=== PATIENT | female | born 1940 | race Caucasian/White ===

== ENCOUNTER 2017-07-04 14:08 | Inpatient (IN) | payer MEDICARE, BC ==
[2017-07-04 14:42] LABS: #Basophils 0.1 thou/uL (0.0-0.2); #Lymphocytes 1.5 thou/uL (1.20-3.40); #Neutrophils 8.6 thou/uL (1.40-6.50); %Basophils 0.8 % (0.0-1.0); %Eosinophils 0.3 % (0.0-10.0); %Lymphocytes 13.7 % (21.0-51.0); %Monocytes 8.6 % (0.0-10.0); Hematocrit 39.5 % (36.0-47.0); Red Blood Cell (RBC) Count 4.42 mill/uL (4.20-5.40); White Blood Cell (WBC) Count 11.2 thou/uL (4.8-10.8)
[2017-07-04 14:52] LABS: Lactic Acid - Sepsis 0.9 mmol/L (0.5-2.2)
[2017-07-04 14:56] LABS: ALT (SGPT) 38 U/L (8-55); AST (SGOT) 42 U/L (5-34); Alkaline Phosphatase 86 U/L (40-150); Anion Gap 14 mmol/L (10-20); BUN (Urea Nitrogen) 14 mg/dL (9.8-20.1); Bilirubin, Total 0.6 mg/dL (0.2-1.2); Calc. Creatinine Clearance 0 mL/min (70-130); Calcium 9.3 mg/dL (7.8-10.44); Carbon Dioxide 21 mmol/L (23-31); Chloride 109 mmol/L (98-107); Estimated GFR-MDRD 66; Globulin 2.5 g/dL (2.4-3.5); Lipase 17 U/L (8-78); Protein, Total 6.5 g/dL (6.0-8.3)
[2017-07-04 14:57] LABS: Troponin I Less than 0.010 ng/mL (< 0.028)
--- NOTE | 2017-07-04 15:21 | RAD ---
PORTABLE CHEST 1 VIEW: DATE: 07/04/17. TIME: 2:48 p.m. HISTORY: Dyspnea. The heart size is normal. The lungs are expanded without focal areas of consolidation, pneumothorax, dirk pulmonary edema, or pleural effusions. IMPRESSION: No acute process. POS: [facility]
[2017-07-04] MEDS ORDERED: Ondansetron HCl/PF 4 MG/2 ML Vial IVP PRN ×2 (17:17→18:04)
[2017-07-04] MEDS ORDERED: Ondansetron ODT 4 MG TAB SL PRN (17:17)
[2017-07-04] MEDS ORDERED: Acetaminophen 325 MG TAB PO PRN (17:17)
[2017-07-04] MEDS ORDERED: Ondansetron ODT 4 MG TAB PO PRN (18:04)
[2017-07-04] MEDS ORDERED: Bisacodyl 5 MG TAB PO PRN (18:04)
[2017-07-04 18:12] LABS: Troponin I Less than 0.010 ng/mL (< 0.028)
--- NOTE | 2017-07-04 19:10 | HP ---
PRIMARY CARE PHYSICIAN: Maya Gonzalez M.D. PRIMARY MEDICAL PSYCHOTHERAPIST: Benjamin Dc M.D. CHIEF COMPLAINT: Fatigue. 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 The patient reports that over the last 3 days she h as felt weak, tired, fatigued, and has been getting worse, this morning she barely had energy to move around, so she eventually went to urgent care. There she was noted to have a severely elevated puls e when they did orthostatics on her and so she was sent to [facility] Emergency Room. There, she was found to be in atrial fibrillation with rapid ventricular rate in the 130s. They garcía lused her with Cardizem and put her on a Cardizem drip which eventually brought her rate down into th e 80s and she is feeling a lot better. On the telemetry monitoring now she is actually back in sinus rhythm. Only other symptoms the patient reports are that today, which she has had a little soreness around the bottom of her rib cage when she takes in deep breaths like she has been coughing a lot, b ut she has not been. PAST MEDICAL HISTORY: 1. Postviral cardiomyopathy. 2. Left bundle branch block. 3. Hypertension. 4. Hyperlipidemia. 5. Hypothyroidism. PAST SURGICAL HISTORY: 1. Transvaginal hysterectomy. 2. Tonsillectomy. 3. Cardiac cath years ago. SOCIAL HISTORY: The patient drinks a glass of white wine every evening. No tobacco or illicit drug use. She is and lives with her who is suffering from a postconcussive or posttraumat ic brain injury. ALLERGIES: No known drug allergies. CURRENT MEDICATIONS: 1. Aspirin 81 mg daily. 2. Carvedilol 25 mg twice a day. 3. Lisinopril 20 mg daily. 4. Simvastatin 20 mg daily. 5. Caltrate 600+ D one tablet daily. 6. Centrum Silver 1 tablet daily. 7. Vitamin C 500 mg daily. 8. Vitamin D 2 tablets daily. 9. Fish oil 1200 mg daily. 10. Glucosamine 1500 mg daily. 11. Claritin as needed. FAMILY HISTORY: Unremarkable. REVIEW OF SYSTEMS: Constitutional: No fevers. She did feel a little chilled 4 days ago, but none s du. No significant weight changes. Eyes: No double vision or blurred vision. ENT: She has had little bit of seasonal allergy congestion, but not bad recently, so that she has not even taken her C laritin. No sore throat. Cardiovascular: No chest pain, no palpitations or racing heart that she h as noticed. She did note that her blood pressure was dropping into the 80s in the last day or so and this is one other reasons she went into the urgent care. Pulmonary: No coughing, no wheezing. She has had very minimal dyspnea and the soreness around the entire lower rib cage when she takes in stefani p breaths. Gastrointestinal: No abdominal pain, no nausea or vomiting, no diarrhea or constipation. Genitourinary: No dysuria or hematuria. Musculoskeletal: No muscle aches or joint pains. SKIN: No rashes or other lesions noted. Neurologic: No numbness, tingling or focal weakness. PHYSICAL EXAMINATION: VITAL SIGNS: Blood pressure 150/77, temperature 99, pulse 77, respirations 16, O2 sat 99% on room ai r. GENERAL: This is a well-developed, obese white female in no apparent distress. HEENT: Pupils equal, round, and reactive to light. Extraocular movements intact. Oropharynx is elo ar without lesions, erythema or exudate. NECK: Supple, no lymphadenopathy, no thyroid nodules or enlargement, no JVD. CARDIAC: Regular rate and rhythm. No murmurs, rubs or gallops. She is currently at about 80 beats per minute and has a regular pulse. LUNGS: Clear to auscultation bilaterally, no wheezes, crackles or rhonchi. ABDOMEN: Soft, nontender to palpation, normoactive bowel sounds, no hepatosplenomegaly or other mass es. EXTREMITIES: No clubbing, cyanosis or edema. SKIN: No rashes or other lesions. NEUROLOGIC: Intact strength in all extremities and no facial droop. LABORATORY DATA: CBC with a white blood cell count 11.2 and neutrophils of 76%. The rest is complet raina normal. Complete metabolic panel was notable for a chloride of 109, bicarbonate of 21 and a gluc ose of 136, AST still is also mildly elevated at 42. The remainder is normal. Brain natriuretic pep tide is elevated at 800. Her cardiac marker set is negative x1. Lactic acid was negative. Telemetr y, I did review the telemetry monitoring. The patient is now back in normal sinus rhythm. X-ray, I did review the x-ray done in the emergency room along with the radiologist's report, it shows normal cardiac silhouette, no acute cardiopulmonary process. ASSESSMENT: 1. Atrial fibrillation with rapid ventricular rate, now converted back to sinus rhythm with Cardizem drip. We will continue drip overnight. We will have Cardiology evaluate her in the morning for conv ersion to oral therapy. We will get an echocardiogram and we will check a TSH to make sure that her t hyroid medicine is not overdosed. 2. Hypertension. We will resume patient's home medications. 3. Hypothyroidism. We will resume the patient's levothyroxine. 4. Hyperlipidemia. We will resume patient's home medications. 5. Gastrointestinal prophylaxis. Put the patient on Pepcid in the hospital. 6. Deep venous thrombosis prophylaxis. Put the patient on Lovenox and sequential compression device s and TEDs while in bed. 7. CODE STATUS: The patient is a FULL CODE. Should she be incapacitated, her son would be her [facility] decision maker; his name is Luigi Gallardo.
[2017-07-04] MEDS: Simvastatin 20 MG TAB PO SCH (20:50)
[2017-07-04] MEDS: Famotidine 20 MG TAB PO SCH (20:50)
[2017-07-04] MEDS: Docusate 100 MG CAP PO SCH (20:50)
[2017-07-04] MEDS ORDERED: Carvedilol 25 MG TAB PO SCH (21:00)
[2017-07-04 21:14] LABS: Troponin I Less than 0.010 ng/mL (< 0.028)
[2017-07-04] MEDS: Acetaminophen 325 MG TAB PO PRN (23:32)
[2017-07-05 05:11] LABS: #Lymphocytes 1.8 thou/uL (1.20-3.40); #Monocytes 0.7 thou/uL (0.11-0.59); #Neutrophils 5.7 thou/uL (1.40-6.50); %Basophils 0.1 % (0.0-1.0); %Eosinophils 0.6 % (0.0-10.0); %Lymphocytes 21.5 % (21.0-51.0); %Monocytes 8.7 % (0.0-10.0); Hematocrit 36.1 % (36.0-47.0); Mean Platelet Volume 9.4 fL (7.4-10.4); Red Blood Cell (RBC) Count 3.89 mill/uL (4.20-5.40); White Blood Cell (WBC) Count 8.2 thou/uL (4.8-10.8)
[2017-07-05 05:18] LABS: Anion Gap 10 mmol/L (10-20); BUN (Urea Nitrogen) 9 mg/dL (9.8-20.1); Calc. Creatinine Clearance 85 mL/min (70-130); Calcium 8.6 mg/dL (7.8-10.44); Carbon Dioxide 23 mmol/L (23-31); Chloride 109 mmol/L (98-107); Estimated GFR-MDRD 82
[2017-07-05] MEDS: Carvedilol 25 MG TAB PO SCH ×2 (08:01→16:11)
[2017-07-05] MEDS: Docusate 100 MG CAP PO SCH ×2 (09:47→20:22)
[2017-07-05] MEDS: Lisinopril 20 MG TAB PO SCH (09:48)
[2017-07-05] MEDS: Famotidine 20 MG TAB PO SCH ×2 (09:48→20:20)
[2017-07-05] MEDS: Enoxaparin Sodium 40 MG/0.4 ML SYRINGE SC SCH (09:48)
--- NOTE | 2017-07-05 13:39 | CON ---
DATE OF CONSULTATION: 07/05/2017 HISTORY: The patient is a 77-year-old woman with a history of a cardiomyopathy who presents for eval uation of weakness and dizziness. The patient has previously been diagnosed with a mild cardiomyopat hy. She was placed on Coreg and lisinopril. The patient underwent a cardiac catheterization in 2008 which revealed her to have a mild decreased left ventricular ejection fraction 45-50% with normal co ronary arteries. The patient has done well in her usual state of health when she started having palp itations and dizziness. She went to the emergency room and found to be orthostatic, her heart rate w as elevated. The patient reports having discomfort over her lower ribs when she takes a deep breath. The patient denies any chest pain with exertion. PAST MEDICAL HISTORY: 1. Atrial fibrillation. 2. Hypertension. 3. Hypothyroidism. PAST SURGICAL HISTORY: Hysterectomy, tonsillectomy. SOCIAL HISTORY: Nonsmoker. ALLERGIES: No known drug allergies. MEDICATIONS ON ADMISSION: Aspirin daily, Coreg 25 b.i.d., lisinopril 20 daily, Zocor 20, fish oil ta blet daily. SOCIAL HISTORY: Nonsmoker. REVIEW OF SYSTEMS: Ten-point system otherwise unremarkable. No history of easy bruising or bleeding , bright red blood per rectum. PHYSICAL EXAMINATION: GENERAL: Well-developed woman in no acute distress. VITAL SIGNS: Blood pressure 135/67. NECK: No jugular venous distention, no carotid bruits. LUNGS: Clear to auscultation. HEART: Regular rate and rhythm, normal S1, S2, no murmurs. ABDOMEN: Nondistended. EXTREMITIES: No edema. SKIN: Warm and dry. NEUROLOGIC: Nonfocal. VASCULAR: Radial pulses are 2+. LABORATORY DATA: White blood cell count 8.2, hemoglobin 12.0, hematocrit 36.1, platelets of 140. So dium is 139, potassium 3.2, chloride 109, bicarbonate 23, BUN 9, creatinine 1.7. BNP was 814. EKG revealed atrial flutter with variable conduction. Chest x-ray showed no cardiomegaly. IMPRESSION: 1. New onset atrial fibrillation/flutter. 2. Hypertension. 3. Left bundle branch block. 4. History of cardiomyopathy. This patient presents with new onset of atrial flutter. Will ask EP to evaluate. May need to underg o an ablation. Will continue the patient on Coreg and lisinopril. Will check the patient's echocard iogram. I will follow this patient with you through her hospitalization.
--- NOTE | 2017-07-05 14:38 | PDOC.PN ---
- Subjective Encounter Start Date: 07/05/17 Encounter Start Time: 08:40 Pt seen for followup re: new-onset atrial fibrillation. Denies chest pain, shortness of breath, fevers or chills. No nausea or vomiting. - Objective Resuscitation Status: Resuscitation Status FULL:Full Resuscitation MAR Reviewed: Yes Vital Signs & Weight: Vital Signs (12 hours) Temp Pulse Resp BP BP Pulse Ox 07/05/17 12:10 98.6 F 72 20 162/91 H 97 07/05/17 09:48 135/67 07/05/17 09:00 98 F 71 18 135/67 97 07/05/17 08:00 98 F 71 18 97 07/05/17 04:00 98.3 F 71 18 129/60 95 Weight Admit Weight 170 lb 4.8 oz Weight 169 lb 12.8 oz I&O: 07/04/17 07/05/17 07/06/17 06:59 06:59 06:59 Intake Total 926 Output Total 500 Balance 426 Result Diagrams: 07/06/17 04:47 07/06/17 04:47 EKG Reviewed by me: Yes (Tele: NSR) Phys Exam - Physical Examination Constitutional: NAD HEENT: PERRLA, moist MMs, sclera anicteric, oral pharynx no lesions Neck: no nodes, no JVD, supple, full ROM Respiratory: no wheezing, no rales, no rhonchi, clear to auscultation bilateral Cardiovascular: RRR, no rub Gastrointestinal: soft, non-tender, no distention, positive bowel sounds Musculoskeletal: pulses present Neurological: moves all 4 limbs Lymphatic: no nodes Psychiatric: normal affect, A&O x 3 Skin: no rash, normal turgor, cap refill <2 seconds Dx/Plan (1) New onset atrial fibrillation Code(s): I48.91 - UNSPECIFIED ATRIAL FIBRILLATION Status: Acute (2) Hypokalemia Code(s): E87.6 - HYPOKALEMIA Status: Acute (3) HTN (hypertension) Code(s): I10 - ESSENTIAL (PRIMARY) HYPERTENSION Status: Chronic (4) Dyslipidemia Code(s): E78.5 - HYPERLIPIDEMIA, UNSPECIFIED Status: Chronic (5) Hypothyroidism Code(s): E03.9 - HYPOTHYROIDISM, UNSPECIFIED Status: Chronic - Plan PT/OT, out of bed/ambulate * . Await cardiology input. Monitor vital signs, titrate antihypertensives as needed. Continue statin. Continue synthroid. Review of Systems - Review of Systems Constitutional: negative: Fever, Chills, Sweats, Weakness, Malaise Respiratory: negative: Cough, Dry, Shortness of Breath, Hemoptysis, SOB with Excertion, Pleuritic Pain, Sputum, Wheezing Cardiovascular: negative: Chest Pain, Palpitations, Orthopnea, Paroxysmal Noc. Dyspnea, Edema, Light Headedness Gastrointestinal: negative: Nausea, Vomiting, Abdominal Pain, Diarrhea, Constipation, Melena, Hematochezia Genitourinary: negative: Dysuria, Frequency, Incontinence, Hematuria, Retention - Medications/Allergies Allergies/Adverse Reactions: Allergies Allergy/AdvReac Type Severity Reaction Status Date / Time No Known Drug Allergies Allergy Verified 07/04/17 20:55 Medications: Current Medications Acetaminophen (Tylenol) 650 mg PO Q4H PRN PRN Reason: Headache/Fever or Pain Last Admin: 07/04/17 23:32 Dose: 650 mg Aspirin (Aspirin Chewable) 81 mg PO [facility] Last Admin: 07/04/17 20:50 Dose: 81 mg Bisacodyl (Dulcolax) 10 mg PO DAILYPRN PRN PRN Reason: Constipation Carvedilol (Coreg) 25 mg PO BID-[facility] Last Admin: 07/05/17 08:01 Dose: 25 mg Docusate Sodium (Colace) 100 mg PO BID [facility] Last Admin: 07/05/17 09:47 Dose: 100 mg Enoxaparin Sodium (Lovenox) 40 mg SC 0900 [facility] Last Admin: 07/05/17 09:48 Dose: 40 mg Famotidine (Pepcid) 20 mg PO BID [facility] Last Admin: 07/05/17 09:48 Dose: 20 mg Lisinopril (Zestril) 20 mg PO DAILY [facility] Last Admin: 07/05/17 09:48 Dose: 20 mg Ondansetron HCl (Zofran Odt) 4 mg PO Q6H PRN PRN Reason: Nausea/Vomiting Ondansetron HCl (Zofran) 4 mg IVP Q6H PRN PRN Reason: Nausea/Vomiting Simvastatin (Zocor) 20 mg PO [facility] Last Admin: 07/04/17 20:50 Dose: 20 mg Sodium Chloride (Flush - Normal Saline) 10 ml IVF Q12HR [facility]NGELA Last Admin: 07/05/17 09:49 Dose: 10 ml Sodium Chloride (Flush - Normal Saline) 10 ml IVF PRN PRN PRN Reason: Saline Flush
[2017-07-05] MEDS ORDERED: Loratadine 10 MG TAB PO PRN (14:42)
[2017-07-05] MEDS: Potassium Chloride 20 MEQ TAB PO SCH ×2 (16:11→20:19)
[2017-07-05] MEDS: Simvastatin 20 MG TAB PO SCH (20:20)
[2017-07-05] MEDS: Acetaminophen 325 MG TAB PO PRN (20:20)
[2017-07-05] MEDS ORDERED: Simvastatin 20 MG TAB PO SCH (21:00)
[2017-07-05] MEDS ORDERED: Carvedilol 25 MG TAB PO SCH (21:00)
[2017-07-05] MEDS ORDERED: Diltiazem HCl 125 MG, Admixture Fee 1 EACH in Sodium Chloride 0.9% 100 ML SLOW IVP SCH (23:30)
[2017-07-06 05:37] LABS: #Lymphocytes 1.8 thou/uL (1.20-3.40); #Monocytes 0.9 thou/uL (0.11-0.59); #Neutrophils 5.7 thou/uL (1.40-6.50); %Basophils 0.2 % (0.0-1.0); %Eosinophils 0.5 % (0.0-10.0); %Lymphocytes 21.6 % (21.0-51.0); %Monocytes 10.4 % (0.0-10.0); Hematocrit 39.8 % (36.0-47.0); Mean Platelet Volume 9.1 fL (7.4-10.4); Red Blood Cell (RBC) Count 4.29 mill/uL (4.20-5.40); White Blood Cell (WBC) Count 8.5 thou/uL (4.8-10.8)
[2017-07-06 05:47] LABS: Anion Gap 11 mmol/L (10-20); BUN (Urea Nitrogen) 8 mg/dL (9.8-20.1); Calc. Creatinine Clearance 79 mL/min (70-130); Calcium 9.4 mg/dL (7.8-10.44); Carbon Dioxide 25 mmol/L (23-31); Chloride 110 mmol/L (98-107); Estimated GFR-MDRD 75
[2017-07-06] MEDS: Levothyroxine Sodium 75 MCG TAB PO SCH (05:49)
[2017-07-06] MEDS ORDERED: METHYLSULFONYLMETHANE PO SCH (09:00)
[2017-07-06] MEDS ORDERED: GLUCOSAMINE SULFATE PO SCH (09:00)
[2017-07-06] MEDS ORDERED: Lisinopril 20 MG TAB PO SCH (09:00)
[2017-07-06] MEDS ORDERED: LECITHIN SOY 400 MG PO SCH (09:00)
[2017-07-06] MEDS: Calcium Carbonate + Vit D 1 TAB PO SCH (09:18)
[2017-07-06] MEDS: Fish Oil 1,000 MG CAP PO SCH (09:18)
[2017-07-06] MEDS: Ascorbic Acid 500 mg Chewable Tablet PO SCH (09:18)
[2017-07-06] MEDS: Carvedilol 25 MG TAB PO SCH ×2 (09:18→18:13)
[2017-07-06] MEDS: Multivitamin W/ Minerals 1 TAB PO SCH (09:18)
[2017-07-06] MEDS: Docusate 100 MG CAP PO SCH ×2 (09:18→21:25)
[2017-07-06] MEDS ORDERED: Digoxin 0.25 MG TAB PO SCH (10:00)
[2017-07-06] MEDS: Famotidine 20 MG TAB PO SCH ×2 (10:25→21:25)
[2017-07-06] MEDS: Lisinopril 20 MG TAB PO SCH (10:26)
[2017-07-06] MEDS ORDERED: Apixaban 5 MG TAB PO SCH (10:30)
[2017-07-06] MEDS: Enoxaparin Sodium 40 MG/0.4 ML SYRINGE SC SCH (10:47)
[2017-07-06] MEDS ORDERED: Diprivan 20 ML ONE (11:44)
[2017-07-06] MEDS ORDERED: Propofol 200 MG/20 ML VIAL ONE (12:07)
[2017-07-06] MEDS ORDERED: Lidocaine 1% PF 5 ML VIAL ONE (12:07)
--- NOTE | 2017-07-06 13:24 | PDOC.PN ---
- Subjective Encounter Start Date: 07/06/17 Encounter Start Time: 08:00 Pt seen for followup re; a. fib. Denies chest pain, shortness of breath, fevers or chills. - Objective Resuscitation Status: Resuscitation Status FULL:Full Resuscitation MAR Reviewed: Yes Vital Signs & Weight: Vital Signs (12 hours) Temp Pulse Resp BP Pulse Ox 07/06/17 10:24 75 119/80 07/06/17 09:17 90 141/94 H 07/06/17 08:00 98.1 F 75 16 143/79 H 97 07/06/17 07:15 87 138/87 07/06/17 04:00 97.7 F 90 16 122/87 97 Weight Admit Weight 170 lb 4.8 oz Weight 170 lb I&O: 07/05/17 07/06/17 07/07/17 06:59 06:59 06:59 Intake Total 926 855 Output Total 500 1800 Balance 426 -945 Result Diagrams: 07/06/17 04:47 07/06/17 04:47 EKG Reviewed by me: Yes (Tele: acosta panchal) Phys Exam - Physical Examination Constitutional: NAD HEENT: moist MMs Neck: supple Respiratory: clear to auscultation bilateral Cardiovascular: irregular Gastrointestinal: soft, non-tender Musculoskeletal: pulses present Neurological: moves all 4 limbs Psychiatric: normal affect Skin: no rash Dx/Plan (1) New onset atrial fibrillation Code(s): I48.91 - UNSPECIFIED ATRIAL FIBRILLATION Status: Acute (2) HTN (hypertension) Code(s): I10 - ESSENTIAL (PRIMARY) HYPERTENSION Status: Chronic (3) Dyslipidemia Code(s): E78.5 - HYPERLIPIDEMIA, UNSPECIFIED Status: Chronic (4) Hypothyroidism Code(s): E03.9 - HYPOTHYROIDISM, UNSPECIFIED Status: Chronic (5) Hypokalemia Code(s): E87.6 - HYPOKALEMIA Status: Resolved - Plan PT/OT, out of bed/ambulate * . Pt reverted to a. fib overnight. Await cardiology/EP opinion. Monitor vital signs,titrate antihypertensives as needed. Continue synthroid. Review of Systems - Review of Systems Constitutional: negative: Fever, Chills, Sweats, Weakness, Malaise Respiratory: negative: Cough, Dry, Shortness of Breath, Hemoptysis, SOB with Excertion, Pleuritic Pain, Sputum, Wheezing Cardiovascular: negative: Chest Pain, Palpitations, Orthopnea, Paroxysmal Noc. Dyspnea, Edema, Light Headedness - Medications/Allergies Allergies/Adverse Reactions: Allergies Allergy/AdvReac Type Severity Reaction Status Date / Time No Known Drug Allergies Allergy Verified 07/04/17 20:55 Medications: Current Medications Acetaminophen (Tylenol) 650 mg PO Q4H PRN PRN Reason: Headache/Fever or Pain Last Admin: 07/05/17 20:20 Dose: 650 mg Apixaban (Eliquis) 5 mg PO BID [facility] Ascorbic Acid (Vitamin C) 500 mg PO DAILY [facility] Last Admin: 07/06/17 09:18 Dose: 500 mg Bisacodyl (Dulcolax) 10 mg PO DAILYPRN PRN PRN Reason: Constipation Calcium/Vitamin D (Caltrate 600 + Vit D) 1 tab PO DAILY [facility] Last Admin: 07/06/17 09:18 Dose: 1 tab Carvedilol (Coreg) 25 mg PO BID-[facility] Last Admin: 07/06/17 09:18 Dose: 25 mg Cholecalciferol (Vitamin D3) 2,000 units PO DAILY [facility] Last Admin: 07/06/17 09:19 Dose: 2,000 units Docusate Sodium (Colace) 100 mg PO BID [facility] Last Admin: 07/06/17 09:18 Dose: 100 mg Famotidine (Pepcid) 20 mg PO BID [facility] Last Admin: 07/06/17 10:25 Dose: 20 mg Fish Oil (Fish Oil) 1,000 mg PO DAILY [facility] Last Admin: 07/06/17 09:18 Dose: 1,000 mg Flecainide Acetate (Tambocor) 50 mg PO Q12HR [facility] Diltiazem HCl 125 mg/Miscellaneous Medication 1 each/ Sodium Chloride 125 mls @ 5 mls/hr SLOW IVP INF [facility] PRN Reason: Protocol Last Admin: 07/05/17 23:48 Dose: 125 mls Iron/Minerals/Multivitamins (Theragran M) 1 tab PO DAILY [facility] Last Admin: 07/06/17 09:18 Dose: 1 tab Levothyroxine Sodium (Synthroid) 75 mcg PO 0600 [facility] Last Admin: 07/06/17 05:49 Dose: 75 mcg Lisinopril (Zestril) 20 mg PO DAILY [facility] Last Admin: 07/06/17 10:26 Dose: 20 mg Loratadine (Claritin) 10 mg PO DAILY PRN PRN Reason: Allergies Ondansetron HCl (Zofran Odt) 4 mg PO Q6H PRN PRN Reason: Nausea/Vomiting Ondansetron HCl (Zofran) 4 mg IVP Q6H PRN PRN Reason: Nausea/Vomiting Pantoprazole Sodium (Protonix) 40 mg PO DAILY PRN PRN Reason: INDIGESTION Simvastatin (Zocor) 20 mg PO HS [facility] Last Admin: 07/05/17 20:20 Dose: 20 mg Sodium Chloride (Flush - Normal Saline) 10 ml IVF Q12HR [facility] Last Admin: 07/05/17 20:23 Dose: 10 ml Sodium Chloride (Flush - Normal Saline) 10 ml IVF PRN PRN PRN Reason: Saline Flush
--- NOTE | 2017-07-06 13:25 | ECHO ---
TRANSESOPHAGEAL ECHOCARDIOGRAM: DATE OF PROCEDURE: 07/06/17 INDICATION: 77-year-old woman with paroxysmal atrial fibrillation. DESCRIPTION OF PROCEDURE: The patient was taken to the PACU. The patient was sedated by anesthesiology. A transesophageal probe was placed in the distal esophagus and stomach. Echocardiographic images were obtained. The transesophageal probe was removed. FINDINGS: 1. Normal left ventricular systolic function. 2. Normal mitral and aortic valve. 3. Mild mitral regurgitation. 4. Mild tricuspid regurgitation. 5. Trivial aortic regurgitation. 6. No thrombus noted in the left atrium or left atrial appendage. 7. Atherosclerotic debris in the descending aorta. IMPRESSION: No formed thrombus in the left atrium or left atrial appendage.
--- NOTE | 2017-07-06 13:27 | OP ---
ELECTRICAL CARDIOVERSION: Date: 07/06/17 INDICATION: This is a 77-year-old woman with paroxysmal atrial fibrillation. DESCRIPTION OF PROCEDURE: The patient taken to the PACU. The patient was sedated by anesthesiology. The patient was shocked wi th 200 joules of synchronized electricity. The patient converted to normal sinus rhythm. IMPRESSION: Successful electrocardioversion
[2017-07-06] MEDS ORDERED: Dronedarone HCl 400 MG TAB PO SCH (17:00)
[2017-07-06] MEDS: Simvastatin 20 MG TAB PO SCH (21:25)
[2017-07-06] MEDS: Acetaminophen 325 MG TAB PO PRN (21:25)
[2017-07-06] MEDS: Apixaban 5 MG TAB PO SCH (21:25)
[2017-07-07 04:54] LABS: #Eosinphils 0.1 thou/uL (0.0-0.7); #Lymphocytes 1.8 thou/uL (1.20-3.40); #Neutrophils 6.2 thou/uL (1.40-6.50); %Basophils 0.3 % (0.0-1.0); %Eosinophils 0.9 % (0.0-10.0); %Monocytes 11.2 % (0.0-10.0); Hematocrit 39.7 % (36.0-47.0); Red Blood Cell (RBC) Count 4.27 mill/uL (4.20-5.40); White Blood Cell (WBC) Count 9.1 thou/uL (4.8-10.8)
[2017-07-07 05:06] LABS: Anion Gap 13 mmol/L (10-20); BUN (Urea Nitrogen) 15 mg/dL (9.8-20.1); Calc. Creatinine Clearance 77 mL/min (70-130); Calcium 9.2 mg/dL (7.8-10.44); Carbon Dioxide 24 mmol/L (23-31); Chloride 107 mmol/L (98-107); Estimated GFR-MDRD 72
[2017-07-07] MEDS: Levothyroxine Sodium 75 MCG TAB PO SCH (06:22)
[2017-07-07] MEDS ORDERED: Digoxin 0.25 MG TAB PO SCH (09:00)
--- NOTE | 2017-07-07 10:04 | EKG ---
Test Reason : POST CARDIOVERSION Blood Pressure : / mmHG Vent. Rate : 073 BPM Atrial Rate : 073 BPM P-R Int : 176 ms QRS Dur : 138 ms QT Int : 436 ms P-R-T Axes : 054 003 090 degrees QTc Int : 480 ms Sinus rhythm with Premature supraventricular complexes Non-specific intra-ventricular conduction block T wave abnormality, consider lateral ischemia Abnormal ECG No previous ECGs available Confirmed by BERNARDA MILLAN, DR. Hendricks ([id number]) on 07/07/2017 10:04:01 AM Referred By: CORNELIO Confirmed By:DR. Eladio MENCHACA MD
[2017-07-07] MEDS ORDERED: Cephalexin 250 MG CAP PO SCH (10:30)
[2017-07-07] MEDS: Ascorbic Acid 500 mg Chewable Tablet PO SCH (11:21)
[2017-07-07] MEDS: Apixaban 5 MG TAB PO SCH ×2 (11:21→20:52)
[2017-07-07] MEDS: Lisinopril 20 MG TAB PO SCH (11:22)
[2017-07-07] MEDS: Carvedilol 25 MG TAB PO SCH ×2 (11:26→16:59)
[2017-07-07] MEDS: Docusate 100 MG CAP PO SCH ×2 (11:26→20:53)
[2017-07-07] MEDS: Fish Oil 1,000 MG CAP PO SCH (11:26)
[2017-07-07] MEDS: Multivitamin W/ Minerals 1 TAB PO SCH (11:27)
[2017-07-07] MEDS: Calcium Carbonate + Vit D 1 TAB PO SCH (11:27)
[2017-07-07] MEDS: Famotidine 20 MG TAB PO SCH ×2 (11:27→20:54)
--- NOTE | 2017-07-07 11:27 | PRG ---
DATE OF SERVICE: 07/07/2017 SUBJECTIVE: Ms. Gallardo is doing well today. She wants to go home. OBJECTIVE: VITAL SIGNS: Blood pressure 135/72, pulse 72 and regular. LUNGS: Clear. CARDIAC: Normal S1, normal S2. Right antecubital IV site looks like there is some redness at the IV site and it is not tender. ASSESSMENT: Atrial fibrillation, maintaining sinus rhythm. Was started on flecainide per Dr. Dalia levi's note. PLAN: 1. The patient is to be released home. 2. She will be on Keflex in view of the redness at the IV site in case there is any phlebitis. She wants to go home at this time and she will be released home.
--- NOTE | 2017-07-07 11:52 | DIS ---
DATE OF ADMISSION: 07/04/2017 DATE OF DISCHARGE: 07/07/2017 PRIMARY CARE PHYSICIAN: Dr. Maya Gonzalez. DISCHARGE DIAGNOSIS: New onset atrial fibrillation/flutter. CONDITION OF PATIENT AT THE TIME OF DISCHARGE: Stable. I assessed Ms. Gallardo on the day of discha rge. She denies any chest pain or shortness of breath. Vital signs are stable. S1 and S2 are heard , regular. Lungs are clear to auscultation bilaterally. PROCEDURES DURING THIS HOSPITALIZATION: 1. Transesophageal echocardiogram on 07/06/2017, which did not show any formed thrombus in the left atrium or left atrial appendage. 2. Cardioversion on 07/06/2017. 3. A 2D echocardiogram on 07/04/2017, which showed ejection fraction estimated at 55%-60%, mildly di lated left atrium and normal left ventricular size. She had mild mitral regurgitation and mild tricu spid regurgitation. DISCHARGE MEDICATIONS: Apixaban 5 mg 2 times a day, flecainide 50 mg 2 times a day, cephalexin 500 m g twice daily for 7 days, vitamin C 500 mg daily, aspirin 81 mg daily, Calcitrate/vitamin D 1 tablet daily, Coreg 25 mg 2 times a daily, vitamin D 2000 units daily, fish oil 1 capsule daily, glucosamine 1500 mg daily, lecithin 1 capsule daily, levothyroxine 75 mcg daily, lisinopril 20 mg daily, loratad ine 10 mg daily as needed, multivitamins 1 tablet daily, Prilosec 2.5 mg daily as needed, simvastatin 20 mg at bedtime. HOSPITAL COURSE: Ms. Gallardo is a pleasant 77-year-old lady who was admitted to [facility] on 07/04/2017 for new onset atrial fibrillation/flutter. She was seen by Cardiology Dr. Dao Gunn. On 07/06/2017, she underwent MARANDA followed by electrical cardioversion. She arias s been started on flecainide and apixaban during this hospitalization. She had intravenous access at the right antecubital fossa. On the day of discharge, it was noted to be mildly inflamed as well as with mildly elevated temperature. She has been started on cephalexin f or suspected skin and soft tissue infection. She is advised to follow up with her primary care provider as well as with Dr. Dc. Many thanks for allowing me to participate in your patient's care. Please feel free to contact me wi th any questions or concerns. On the day of discharge, she has a white count of 9100, hemoglobin 12.6, platelet count 178,000, norm al basic metabolic profile. Her TSH during this hospitalization was normal at 1.4664. DISCHARGE DESTINATION: Home. TOTAL AMOUNT OF TIME SPENT COORDINATING THIS DISCHARGE: 33 minutes.
--- NOTE | 2017-07-07 14:07 | PDOC.PN ---
- Subjective Encounter Start Date: 07/07/17 Encounter Start Time: 09:00 Pt seen for followup re: atrial fibrillation. Denies chest pain, shortness of breath, fevers or chills. - Objective Resuscitation Status: Resuscitation Status FULL:Full Resuscitation MAR Reviewed: Yes Vital Signs & Weight: Vital Signs (12 hours) Temp Pulse Resp BP BP Pulse Ox 07/07/17 12:05 98.6 F 71 20 146/73 H 99 07/07/17 11:22 164/88 H 07/07/17 04:20 97 07/07/17 04:00 98.1 F 72 18 135/72 97 Weight Admit Weight 170 lb 4.8 oz Weight 171 lb 9.6 oz I&O: 07/06/17 07/07/17 07/08/17 06:59 06:59 06:59 Intake Total 855 240 Output Total 1800 100 Balance -945 140 Result Diagrams: 07/07/17 04:17 07/07/17 04:16 EKG Reviewed by me: Yes (Tele: NSR) Phys Exam - Physical Examination Constitutional: NAD HEENT: moist MMs, oral pharynx no lesions Neck: no JVD Respiratory: clear to auscultation bilateral Cardiovascular: RRR Gastrointestinal: soft, non-tender Neurological: moves all 4 limbs Psychiatric: normal affect Skin: no rash Dx/Plan (1) New onset atrial fibrillation Code(s): I48.91 - UNSPECIFIED ATRIAL FIBRILLATION Status: Acute (2) HTN (hypertension) Code(s): I10 - ESSENTIAL (PRIMARY) HYPERTENSION Status: Chronic (3) Dyslipidemia Code(s): E78.5 - HYPERLIPIDEMIA, UNSPECIFIED Status: Chronic (4) Hypothyroidism Code(s): E03.9 - HYPOTHYROIDISM, UNSPECIFIED Status: Chronic (5) Hypokalemia Code(s): E87.6 - HYPOKALEMIA Status: Resolved - Plan PT/OT, out of bed/ambulate * . Plan was to discharge pt home on flecainide and apixaban. However, she reverted to a. fib in the afternoon. Discharge on hold, continue to monitor. Continue to ambulate patient. Continue flecainide and apixaban. Review of Systems - Review of Systems Constitutional: negative: Fever, Chills, Sweats, Weakness, Malaise Cardiovascular: negative: Chest Pain, Palpitations, Orthopnea, Paroxysmal Noc. Dyspnea, Edema, Light Headedness Gastrointestinal: negative: Nausea, Vomiting, Abdominal Pain, Diarrhea, Constipation, Melena, Hematochezia - Medications/Allergies Allergies/Adverse Reactions: Allergies Allergy/AdvReac Type Severity Reaction Status Date / Time No Known Drug Allergies Allergy Verified 07/04/17 20:55 Medications: Current Medications Acetaminophen (Tylenol) 650 mg PO Q4H PRN PRN Reason: Headache/Fever or Pain Last Admin: 07/06/17 21:25 Dose: 650 mg Apixaban (Eliquis) 5 mg PO BID [facility] Last Admin: 07/07/17 11:21 Dose: 5 mg Ascorbic Acid (Vitamin C) 500 mg PO DAILY [facility] Last Admin: 07/07/17 11:21 Dose: 500 mg Bisacodyl (Dulcolax) 10 mg PO DAILYPRN PRN PRN Reason: Constipation Calcium/Vitamin D (Caltrate 600 + Vit D) 1 tab PO DAILY [facility] Last Admin: 07/07/17 11:27 Dose: 1 tab Carvedilol (Coreg) 25 mg PO BID[facility] Last Admin: 07/07/17 11:26 Dose: 25 mg Cephalexin (Keflex) 500 mg PO Q12HR [facility] Cholecalciferol (Vitamin D3) 2,000 units PO DAILY [facility] Last Admin: 07/07/17 11:26 Dose: 2,000 units Docusate Sodium (Colace) 100 mg PO BID [facility] Last Admin: 07/07/17 11:26 Dose: 100 mg Famotidine (Pepcid) 20 mg PO BID [facility] Last Admin: 07/07/17 11:27 Dose: 20 mg Fish Oil (Fish Oil) 1,000 mg PO DAILY [facility] Last Admin: 07/07/17 11:26 Dose: 1,000 mg Flecainide Acetate (Tambocor) 50 mg PO Q12HR [facility] Last Admin: 07/07/17 11:21 Dose: 50 mg Iron/Minerals/Multivitamins (Theragran M) 1 tab PO DAILY [facility] Last Admin: 07/07/17 11:27 Dose: 1 tab Levothyroxine Sodium (Synthroid) 75 mcg PO 0600 [facility] Last Admin: 07/07/17 06:22 Dose: 75 mcg Lisinopril (Zestril) 20 mg PO DAILY [facility] Last Admin: 07/07/17 11:22 Dose: 20 mg Loratadine (Claritin) 10 mg PO DAILY PRN PRN Reason: Allergies Ondansetron HCl (Zofran Odt) 4 mg PO Q6H PRN PRN Reason: Nausea/Vomiting Ondansetron HCl (Zofran) 4 mg IVP Q6H PRN PRN Reason: Nausea/Vomiting Pantoprazole Sodium (Protonix) 40 mg PO DAILY PRN PRN Reason: INDIGESTION Simvastatin (Zocor) 20 mg PO HS [facility] Last Admin: 07/06/17 21:25 Dose: 20 mg Sodium Chloride (Flush - Normal Saline) 10 ml IVF Q12HR [facility] Last Admin: 07/07/17 11:27 Dose: Not Given Sodium Chloride (Flush - Normal Saline) 10 ml IVF PRN PRN PRN Reason: Saline Flush
[2017-07-07] MEDS: Simvastatin 20 MG TAB PO SCH (20:53)
[2017-07-07] MEDS: Cephalexin 250 MG CAP PO SCH (20:53)
[2017-07-08 05:16] LABS: #Eosinphils 0.1 thou/uL (0.0-0.7); #Lymphocytes 1.8 thou/uL (1.20-3.40); #Neutrophils 6.1 thou/uL (1.40-6.50); %Basophils 0.3 % (0.0-1.0); %Lymphocytes 19.7 % (21.0-51.0); %Monocytes 11.5 % (0.0-10.0); Anion Gap 10 mmol/L (10-20); BUN (Urea Nitrogen) 14 mg/dL (9.8-20.1); Calc. Creatinine Clearance 85 mL/min (70-130); Carbon Dioxide 23 mmol/L (23-31); Chloride 107 mmol/L (98-107); Estimated GFR-MDRD 84; Hematocrit 39.4 % (36.0-47.0); Red Blood Cell (RBC) Count 4.27 mill/uL (4.20-5.40)
[2017-07-08] MEDS: Levothyroxine Sodium 75 MCG TAB PO SCH (05:36)
[2017-07-08] MEDS: Docusate 100 MG CAP PO SCH (08:59)
[2017-07-08] MEDS: Ascorbic Acid 500 mg Chewable Tablet PO SCH (08:59)
[2017-07-08] MEDS: Cephalexin 250 MG CAP PO SCH (08:59)
[2017-07-08] MEDS: Carvedilol 25 MG TAB PO SCH (08:59)
[2017-07-08] MEDS: Calcium Carbonate + Vit D 1 TAB PO SCH (08:59)
[2017-07-08] MEDS: Apixaban 5 MG TAB PO SCH (09:01)
[2017-07-08] MEDS: Fish Oil 1,000 MG CAP PO SCH (09:01)
[2017-07-08] MEDS: Lisinopril 20 MG TAB PO SCH (09:02)
[2017-07-08] MEDS: Famotidine 20 MG TAB PO SCH (09:02)
[2017-07-08] MEDS: Multivitamin W/ Minerals 1 TAB PO SCH (09:02)
[2017-07-08 12:22] VITALS: BP 119/66; TEMP 97.8
--- NOTE | 2017-07-08 16:10 | ADD-DIS ---
ADDENDUM DATE OF ADMISISON: 07/04/2017 DATE OF DISCHARGE: 07/08/2017 PRIMARY CARE PHYSICIAN: Dr. Maya Gonzalez. DISCHARGE DIAGNOSIS: New onset atrial fibrillation/flutter. The patient was not discharged that day, because of recurrence of atrial fibrillation. She has been started on Cardizem-CD and is being discharged home on 07/08/2017. CONDITION OF PATIENT AT THE TIME OF DISCHARGE: Stable. I assess Ms. Gallardo on the day of discharg e. She denies any fevers or chills. No nausea or vomiting. PHYSICAL EXAMINATION: VITAL SIGNS: Stable. HEART: patient monitor shows normal sinus rhythm. S1 and S2 are heard, regular. LUNGS: Clear to auscultation bilaterally. DISCHARGE MEDICATIONS: In addition to the discharge medications dictated on the discharge summary fr om 07/07/2017, she is being discharged home on Cardizem-CD 120 mg daily. PROCEDURES DURING THIS HOSPITALIZATION: As dictated on the discharge summary on 07/07/2017. HOSPITAL COURSE: Please refer to the previous discharge summary dictated on 07/07/2017. She was not discharged on 07/07/2017, because of recurrence of atrial fibrillation. However, she converted to n ormal sinus rhythm shortly after being started on Cardizem drip. She was switched to oral Cardizem a nd is being discharged home. Many thanks for allowing me to participate in your patient's care. Please feel free to contact me wi th any questions or concerns. On the day of discharge, she has a white count of 9000, hemoglobin 12.7, platelet count 198,000 and a normal basic metabolic profile. DISCHARGE DESTINATION: Home. TOTAL AMOUNT OF TIME SPENT COORDINATING THIS DISCHARGE: 23 minutes.
--- NOTE | 2017-07-10 07:34 | EKG ---
Test Reason : Blood Pressure : / mmHG Vent. Rate : 075 BPM Atrial Rate : 075 BPM P-R Int : 182 ms QRS Dur : 150 ms QT Int : 414 ms P-R-T Axes : 044 -11 135 degrees QTc Int : 462 ms Normal sinus rhythm Left bundle branch block Abnormal ECG When compared with ECG of 06-JUL-2017 12:50, Premature supraventricular complexes are no longer Present Confirmed by BERNARDA MILLAN, DR. Hendricks ([id number]) on 07/10/2017 7:34:13 AM Referred By: LÁZARO Confirmed By:DR. Eladio MENCHACA MD
== END 2017-07-08 12:56 | disposition home or self-care (01) | DRG 310 ==
LOC: SCSER 14:08 → 2NO 16:32
PROVIDERS: ADMIT Emergency Medicine; ATTEND Emergency Medicine
PROC: 5A2204Z Restoration of Cardiac Rhythm, Single (ICD-10-PCS; principal; 2017-07-06)
DX: I48.0 Paroxysmal atrial fibrillation (principal); I44.7 Left bundle-branch block, unspecified; I10 Essential (primary) hypertension; Z90.710 Acquired absence of both cervix and uterus; E03.9 Hypothyroidism, unspecified; E78.5 Hyperlipidemia, unspecified; I48.92 Unspecified atrial flutter; E87.6 Hypokalemia
CPT/HCPCS: 36415; 71010; 80048; 80053; 82553; 83605; 83690; 83880; 84443; 84484; 85025; 92960; 93005; 93010; 93306; 93312; 96365; 96376; A4216; J1650; J2001; J2704; J7050

== ENCOUNTER 2018-04-11 14:48 | Outpatient (CLI) | payer MEDICARE, BC | END 2018-04-11 14:49 | disposition home or self-care (01) | LOC: BICMAMMO 14:48 | PROVIDERS: ATTEND Family Medicine | DX: N64.4 Mastodynia (principal); R21 Rash and other nonspecific skin eruption; R92.1 Mammographic calcification found on diagnostic imaging of breast | CPT/HCPCS: 77066; G0279 ==

== ENCOUNTER 2019-06-01 12:09 | Emergency (ER) | payer MEDICARE, BC ==
[2019-06-01] MEDS ORDERED: Adacel (T-DAP) 0.5 ML SYRINGE ONE (12:46)
--- NOTE | 2019-06-01 14:12 | CT ---
CT BRAIN WITHOUT CONTRAST: HISTORY: Fall. The patient is on Eliquis. COMPARISON: None. FINDINGS: No evidence of acute infarct, hemorrhage, midline shift or abnormal extraaxial fluid collections are seen. The ventricular size is appropriate and the basilar cisterns are patent. The bony calvarium is intact. The visualized paranasal sinuses and mastoid air cells are well aerated. IMPRESSION: No CT evidence of acute intracranial process. POS: [facility]
== END 2019-06-01 13:28 | disposition home or self-care (01) ==
LOC: SCSER 12:09
DX: S01.21XA Laceration without foreign body of nose, initial encounter (principal); I10 Essential (primary) hypertension; E78.5 Hyperlipidemia, unspecified; E03.9 Hypothyroidism, unspecified; Z23 Encounter for immunization; W18.30XA Fall on same level, unspecified, initial encounter
CPT/HCPCS: 70450; 90471; 90715

== ENCOUNTER 2020-05-20 14:44 | Outpatient (CLI) | payer MEDICARE, BC ==
--- NOTE | 2020-05-20 15:49 | MMO ---
Bilateral MAMMO Bilat Screen [facility]. CLINICAL HISTORY: Patient is 80 years old and is seen for screening. The patient has no family history of breast cancer. The patient has no personal history of cancer. The patient has a history of Excisional Biopsy at an unknown age - benign - UNKNOWN LATERALITY. VIEWS: The views performed were: bilateral craniocaudal with tomosynthesis and bilateral mediolateral oblique with tomosynthesis. FILMS COMPARED: The present examination has been compared to prior imaging studies performed at [facility] on 04/11/2018 and 04/14/2019. This study has been interpreted with the assistance of computer-aided detection. MAMMOGRAM FINDINGS: The breasts are heterogeneously dense, which could obscure a lesion on mammography. There are stable benign appearing calcifications seen in both breasts. There are also vascular calcifications. There are no suspicious masses, suspicious calcifications, or new areas of architectural distortion. IMPRESSION: THERE IS NO MAMMOGRAPHIC EVIDENCE OF MALIGNANCY. A ROUTINE FOLLOW-UP MAMMOGRAM IN 1 YEAR IS RECOMMENDED. THE RESULTS OF THIS EXAM WERE SENT TO THE PATIENT. ACR BI-RADS Category 2 - Benign finding MAMMOGRAPHY NOTE: 1. A negative mammogram report should not delay a biopsy if a dominant of clinically suspicious mass is present. 2. Approximately 10% to 15% of breast cancers are not detected by mammography. 3. Adenosis and dense breasts may obscure an underlying neoplasm. Reported by: WENDY SOTO MD Electonically Signed: [id number]
== END 2020-05-20 14:45 | disposition home or self-care (01) ==
LOC: BICMAMMO 14:44
PROVIDERS: ATTEND Family Medicine
DX: Z12.31 Encounter for screening mammogram for malignant neoplasm of breast (principal); Z91.89 Other specified personal risk factors, not elsewhere classified
CPT/HCPCS: 77063; 77067

== ENCOUNTER 2021-05-31 11:32 | Outpatient (CLI) | payer MEDICARE, BC | END 2021-05-31 11:33 | disposition home or self-care (01) | LOC: BICMAMMO 11:32 | PROVIDERS: ATTEND Family Medicine | DX: Z12.31 Encounter for screening mammogram for malignant neoplasm of breast (principal); Z91.89 Other specified personal risk factors, not elsewhere classified | CPT/HCPCS: 77063; 77067 ==

== ENCOUNTER 2022-06-02 11:21 | Outpatient (CLI) | payer MEDICARE, BC | END 2022-06-02 11:22 | disposition home or self-care (01) | LOC: BICMAMMO 11:21 | PROVIDERS: ATTEND Family Medicine | DX: Z12.31 Encounter for screening mammogram for malignant neoplasm of breast (principal); Z91.89 Other specified personal risk factors, not elsewhere classified | CPT/HCPCS: 77063; 77067 ==

== ENCOUNTER 2023-10-17 14:00 | Outpatient (CLI) | payer BC, MEDICARE | END 2023-10-17 14:01 | disposition home or self-care (01) | LOC: BICMAMMO 14:00 | PROVIDERS: ATTEND Family Medicine | DX: Z12.31 Encounter for screening mammogram for malignant neoplasm of breast (principal); Z13.820 Encounter for screening for osteoporosis; N95.9 Unspecified menopausal and perimenopausal disorder; M85.851 Other specified disorders of bone density and structure, right thigh; M85.852 Other specified disorders of bone density and structure, left thigh; Z91.89 Other specified personal risk factors, not elsewhere classified | CPT/HCPCS: 77063; 77067; 77080 ==